=== PATIENT | male | born 2000 | race Caucasian/White ===

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

== ENCOUNTER 2018-11-10 05:03 | Emergency (ER) | payer OTHER ==
--- NOTE | 2018-11-10 05:07 | EDPHY ---
H & P Time Seen by Provider: 11/10/18 05:06 HPI/ROS: HPI CHIEF COMPLAINT: Alcohol Intoxication , fall, head injury. HISTORY OF PRESENT ILLNESS: 17-year-old male presents emergency room for acute alcohol toxication and vomiting. At some point earlier tonight he fell he sustained a right eyebrow hematoma and contusion. He arrives to the emergency room highly intoxicated with alcohol. Denies any complaints. There has vomit all over him. He has a right eyebrow hematoma. Denies neck pain. Denies chest pain or shortness of breath. Past Medical History: No medical history Past Surgical History: No surgical history Social History: Alcohol this evening. Family History: Noncontributory ROS REVIEW OF SYSTEMS: 10 Systems were reviewed and negative with the exception of the elements mentioned in the history of present illness. Exam Constitutional Intoxicated, triage nursing summary reviewed, vital signs reviewed, Sleepy, smells of alcohol Eyes normal conjunctivae and sclera, horizontal beating nystagmus consistent acute alcohol intoxication, otherwise pupils equal and react to light HENT head/neck atraumatic however right forehead eyebrow hematoma. atraumatic , moist mucus membranes, no epistaxis, neck supple/ no meningismus, no raccoon eyes. Respiratory clear to auscultation bilaterally, normal breath sounds, no respiratory distress, no wheezing. Cardiovascular rate normal, regular rhythm, no murmur, no edema, distal pulses normal. Gastrointestinal soft, non-tender, no rebound, no guarding, normal bowel sounds, no distension, no pulsatile mass. Genitourinary no CVA tenderness. Musculoskeletal no midline vertebral tenderness, full range of motion, no calf swelling, no tenderness of extremities, no meningismus, good pulses, neurovascularly intact. Skin pink, warm, & dry, no rash, skin atraumatic. Neurologic sleepy, intoxicated with alcohol,, alert and oriented x 3, AAOx3, moves all 4 extremities equally, motor intact, sensory intact, CN II-XII intact , , normal vision, normal speech. Psychiatric normal mood/affect. Heme/Lymph/Immune no lymphadenopathy. Differential Diagnosis: Includes but is not limited to in a particular order acute alcohol intoxication, alcohol abuse, dehydration, electrolyte abnormality , nausea vomiting from acute alcohol intoxication Medical Decision Making: Plan for this patient CT scan head without contrast due to alcohol intoxication and head trauma on exam. Clean his wound. Re-evaluation: Breath alcohol 196. CT scan head without contrast negative for acute bleed or trauma. There is an incidental colloid cyst seen. I explained to the patient he has this. He should follow up with his primary care doctor about this. He understands sometimes the cyst get bigger. And grow. He is sober. Ambulatory at 7:25 a.m. In no acute distress. Clinically sober and safe for discharge. Source: Patient, EMS - Medical/Surgical History Hx Asthma: No Hx Chronic Respiratory Disease: No Hx Diabetes: No Hx Cardiac Disease: No Hx Renal Disease: No Hx Cirrhosis: No Hx Alcoholism: No Hx HIV/AIDS: No Hx Splenectomy or Spleen Trauma: No Other PMH: denies - Social History Smoking Status: Never smoked Constitutional: Initial Vital Signs Temperature (C) 37.0 C 11/10/18 05:14 Heart Rate 93 11/10/18 05:14 Respiratory Rate 16 11/10/18 05:14 Blood Pressure 144/98 H 11/10/18 05:14 O2 Sat (%) 92 11/10/18 05:14 O2 Delivery Mode Room Air Allergies/Adverse Reactions: No Known Allergies Allergy (Verified 11/10/18 05:14) Departure - Departure Disposition: Home, Routine, Self-Care Clinical Impression: Alcoholic intoxication Qualifiers: Complication of substance-induced condition: uncomplicated Qualified Code(s): F10.920 - Alcohol use, unspecified with intoxication, uncomplicated Traumatic hematoma of forehead Qualifiers: Encounter type: initial encounter Qualified Code(s): S00.83XA - Contusion of other part of head, initial encounter Condition: Good Instructions: Hematoma (ED), Alcohol Intoxication (ED), Abuse of Alcohol (ED) Additional Instructions: 1. You have a CT scan done tonight in the emergency room this showed no evidence of traumatic injury from her fall. However there is a Colloid cyst seen on her CT scan this needs to be followed by your primary care doctor. Sometimes these grow. Referrals: NONE *PRIMARY CARE P,. [Primary Care Provider] - As per Instructions
[2018-11-10 07:23] VITALS: BP 127/88
== END 2018-11-10 08:07 | disposition home or self-care (01) ==
LOC: EDUNIT#
DX: S00.83XA Contusion of other part of head, initial encounter (principal); W19.XXXA Unspecified fall, initial encounter; F10.920 Alcohol use, unspecified with intoxication, uncomplicated; Y90.6 Blood alcohol level of 120-199 mg/100 ml